=== PATIENT | male | born 1940 | race Caucasian/White ===

== ENCOUNTER → 2017-03-24 14:03 | Outpatient (POV) | payer MEDICARE, SELFPAY ==
[2017-03-24 15:56] LABS: Eosinophils # 0.1 K/mm3 (0.0-0.4); Eosinophils % 0.6 % (0.1-12.0); Hematocrit 49.5 % (42.0-52.0); Hemoglobin 15.5 g/dL (14.1-18.0); Lymphocytes # 1.1 K/mm3 (0.7-4.5); Lymphocytes % 10.5 K/mm3 (10-50); Mean Corpuscular HGB Conc 31.2 g/dL (31.8-35.4); Mean Corpuscular Hemoglobin 28.2 pg (27.0-31.2); Mean Corpuscular Volume 90.2 fl (80-94); Mean Platelet Volume 8.2 fl (7.4-10.4); Monocytes # 0.5 K/mm3 (0.1-1.0); Monocytes % 4.6 % (1.7-9.3); Neutrophils # 8.4 K/mm3 (1.8-7.8); Neutrophils % 84.3 % (37.0-80.0); Platelet Count 206 K/mm3 (142-424); Red Blood Count 5.49 M/mm3 (4.60-6.20); Red Cell Distribution Width 12.5 % (11.5-17.5)
--- NOTE | 2017-03-24 16:00 | XR_ITS ---
XR chest 2V HISTORY: ITS.REASON: ASTHMA ORDERING PHYSICIAN: Robert Alvares MD PATIENT AGE: 76 years COMPARISON: None available FINDINGS: There is been prior median sternotomy. Bipolar pacemaker is present from the left subclavian approach. Minimal fibrotic changes are present in the right upper lung zone with pleural thickening laterally. No lobar consolidation or collapse. There is coronary artery stent on the left. There is slight loss of height anteriorly of T12 age indeterminate. IMPRESSION: 1. No definite acute finding. 2. Prior median sternotomy with fibrotic change and pleural thickening right midlung laterally
[2017-04-01 06:32] LABS: Immunoglobulin E, Total 23 IU/mL (0-100)
== END ==
PROVIDERS: Nurse Practitioner Family; PCP Family Medicine; Visit Provider Internal Medicine
DX: J45.909 Unspecified asthma, uncomplicated (principal)
CPT/HCPCS: 36415; 71046; 82785; 85025

== ENCOUNTER → 2017-04-27 14:26 | Outpatient (CLI) | payer MEDICARE, SELFPAY ==
--- NOTE | 2017-04-27 14:29 | CT_ITS ---
CT sinus wo con Ordering Physician: Tobi Carlson MD Patient Age: 76 years: Male HISTORY: ITS.REASON: CHRONIC MAXILLARY SINUSITIS chronic maxillary sinusitis. TECHNIQUE: Helical CT scanning performed through the facial bones and paranasal sinuses. Sagittal coronal reconstructions on CT workstation. COMPARISON :Previous CT sinuses October 2016. And CT head August 2016 FINDINGS Maxillary sinuses are well-developed. Ostiomeatal unit and pathway clear and patent bilaterally Right maxillary sinus. Minor Scant mucosal thickening along floor of maxillary sinus.. Unchanged as prior studies. Left maxillary sinus clear unremarkable Ethmoid air cells: Stable mild inflammatory changes. Opacification of the mid left ethmoid air cells again noted with mild diffuse thickening otherwise.. Frontal sinuses. Very Small underdeveloped but clear frontal sinuses.. Sphenoid sinus. Additional moderate mucosal thickening at left frontal sinus.. Slightly bubbly character. Moderate size sella turcica with a relatively small flat pituitary which may reflect partial empty sella pattern. Stable as well Nasal septum with only scant rightward deviation. Inferior septum.. Slightly less mild engorgement nasal turbinates bilaterally -most notable at at theinferior left turbinate.. Orbits included unremarkable. Mild diffuse cerebral atrophy age-appropriate noted. The soft tissues the nasopharynx appears satisfactory. Low resolution images the brain suggest Cerebral atrophy, which most likely accounts for stable generous lateral and third ventricle. . IMPRESSION: .. Left sphenoid sinus-. Slight progressive mucosal thickening w/ additional modest bubbly material. Suggest minor progression of sinusitis here since October 2016. Ethmoid sinuses. Opacification mid left ethmoid air cells again noted with mild inflammatory changes are otherwise ethmoids Stable Scant mucosal thickening inferior right maxillary sinus. Unimpressive with no air-fluid level. . Ostiomeatal unit patent bilateral Moderate engorgement nasal turbinates. Minor deviation nasal septum. Noted above
== END ==
PROVIDERS: PCP Family Medicine; Visit Provider Otolaryngology
DX: J32.9 Chronic sinusitis, unspecified (principal); J32.2 Chronic ethmoidal sinusitis
CPT/HCPCS: 70486

== ENCOUNTER → 2018-11-29 08:44 | Outpatient (CLI) | payer MEDICARE, SELFPAY ==
--- NOTE | 2018-11-29 08:46 | CA_ITS ---
APPROVED REPORT Hospitalist Nocturnist Physician: CT Laterality: Bilateral Study Quality: Fair Indications: ELIZABETH Risk Factors Hypertension: Hyperlipidemia Doppler Spectral Velocity Analysis ECA (R) 91.00/ cm/s ECA (L) 68.60/ cm/s dICA (R) 40.60/18.40 cm/s dICA (L) 57.30/21.20 cm/s Herminio (R) 41.30/17.10 cm/s Herminio (L) 74.80/23.50 cm/s pICA (R) 68.40/28.70 cm/s pICA (L) 104.00/40.90 cm/s dCCA (R) 54.10/16.70 cm/s dCCA (L) 53.30/15.70 cm/s pCCA (R) 59.70/16.50 cm/s pCCA (L) 67.20/13.40 cm/s Vert (R) 25.50/ cm/s Vert (L) 19.00/ cm/s ICA/CCA 1.26 ICA/CCA 1.95 Findings Duplex evaluation demonstrates stenosis of the right proximal internal carotid artery in the range of 20-49% with PSV <140 cm/sec, EDV <100 cm/sec, and IC/CC Ratio <4.0. Duplex evaluation demonstrates stenosis of the left proximal internal carotid artery in the range of 20-49% with PSV <140 cm/sec, EDV <100 cm/sec, and IC/CC Ratio <4.0. Duplex evaluation demonstrates antegrade flow of the bilateral Vertebral Arteries. Conclusion Duplex evaluation demonstrates stenosis of the right proximal internal carotid artery in the range of 20-49% Duplex evaluation demonstrates stenosis of the left proximal internal carotid artery in the range of 20-49% Duplex evaluation demonstrates antegrade flow of the bilateral Vertebral Arteries. Electronically signed by : Donn Cai MD 12/03/2018 07:43:21
== END ==
PROVIDERS: PCP Family Medicine; Visit Provider Urology
DX: I65.23 Occlusion and stenosis of bilateral carotid arteries (principal)
CPT/HCPCS: 93880

== ENCOUNTER → 2019-12-20 12:31 | Outpatient (CLI) | payer MEDICARE, SELFPAY ==
--- NOTE | 2019-12-20 12:35 | CA_ITS ---
APPROVED REPORT EXAM: Comprehensive 2D, Doppler, and color-flow Echocardiogram [employer] Manager: Jessica Jimenez RT(R) Ht: 5 ft 5 in Wt: 155lbs BSA: 1.77 BP: 154/82 mmHg Indications: HTN, SOA, CP, CAD, AVR porcine, PP, hyperlipidemia M-Mode Dimensions RVDd 2.81 cm (0.9-2.6) LA Diam 3.27 cm (1.9-4.0) LVDd 4.68 cm (3.5-5.7) Ao Diam 3.32 cm (2.0-3.7) LVDs 3.52 cm (3.5-5.7) IVSd 1.56 cm (0.6-1.1) PWd 1.38 cm (0.6-1.1) EF (Teich) 49.10% FS 24.80% EDV (Teich) 101.30 mL ESV (Teich) 51.60 mL Aortic Valve LVOT Max 83.00 (70-110 cm/s) LVOT VTI 18.96 cm AoV Peak Casey. 189.00 (50-130 cm/s) AO Peak GR. 14.40 mmHg AO Mean GR. 8.70 (<5 mmHg) AO VTI 42.64 (18-25 cm) Tricuspid Valve TR P. Velocity 249.00 cm/s RAP Estimate 15.00 mmHg RVSP 39.80 mmHg Left Ventricle Left atrium is mildly enlarged, left ventricle is normal size, mild concentric left ventricular hypertrophy, visually estimated ejection fraction approximately 40%, there is abnormal septal motion, there appears to be mild hypokinesis involving the mid to distal septum and anterior apical wall. Diastolic parameters are inconclusive. Right Ventricle Right atrium and right ventricle are normal size and contractility, there is a pacemaker lead seen right sided chamber. Aortic Valve Historically patient has a bioprosthetic valve in the aortic position, the valve leaflets are not well visualized. There is extensive calcification noted on the valve, however the velocities across the valve is not increased to suggest prosthetic valve stenosis. There is no aortic insufficiency. Mitral Valve Mitral valve has mitral calcification, leaflets are minimally thickened, there is no mitral stenosis, there is mild mitral regurgitation. Tricuspid Valve Tricuspid valve is grossly normal, there is mild tricuspid regurgitation. Tricuspid regurgitation jet velocity is inadequate for calculation of the right ventricular systolic pressure. Pulmonic Valve Pulmonic valve is poorly visualized. Great Vessels Aortic root is normal size. Pericardium No significant pericardial effusion noted. Conclusion 1. Mildly low left atrium, normal left ventricular size, mild concentric left ventricular hypertrophy, visually estimated ejection fraction 40%, there is abnormal septal motion and segmental wall motion abnormality described above, diastolic parameters are inconclusive. 2. Bioprosthetic valve noted in the aortic position, the prosthetic outflow velocities are not suggestive of prosthetic valve stenosis, there is extensive calcification seen on the valve. There is no aortic insufficiency. 3. Mild mitral and tricuspid regurgitation. 4. No significant pericardial effusion noted. Electronically signed by : Basil Connell, 12/21/2019 05:42:45
--- NOTE | 2019-12-20 12:35 | CA_ITS ---
APPROVED REPORT Laborer Tanbark: PAIGE Laterality: Bilateral Study Quality: Adequate Indications: bilateral carotid artery stenosis Risk Factors Hypertension: Hyperlipidemia Doppler Spectral Velocity Analysis ECA (R) 139.90/34.10 cm/s ECA (L) 135.40/39.40 cm/s dICA (R) 37.40/10.20 cm/s dICA (L) 117.90/34.60 cm/s Herminio (R) 44.40/12.80 cm/s Herminio (L) 193.00/44.40 cm/s pICA (R) 59.80/18.80 cm/s pICA (L) 233.10/85.50 cm/s dCCA (R) 79.70/22.30 cm/s dCCA (L) 82.30/21.40 cm/s pCCA (R) 110.10/18.20 cm/s pCCA (L) 80.50/14.60 cm/s Vert (R) 42.80/13.90 cm/s Vert (L) 60.20/12.80 cm/s ICA/CCA 0.75 ICA/CCA 2.83 Findings Duplex evaluation demonstrates stenosis of the right proximal internal carotid artery in the range of 20-49% with PSV <140 cm/sec, EDV <100 cm/sec, and IC/CC Ratio <4.0. Duplex evaluation demonstrates stenosis of the left proximal internal carotid artery in the range of 50-69% with PSV =140 cm/sec, EDV <100 cm/sec, and IC/CC Ratio <4.0. Conclusion Duplex evaluation demonstrates stenosis of the right proximal internal carotid artery in the range of 20-49% with PSV <140 cm/sec, EDV <100 cm/sec, and IC/CC Ratio <4.0. Duplex evaluation demonstrates stenosis of the left proximal internal carotid artery in the range of 50-69% with PSV =140 cm/sec, EDV <100 cm/sec, and IC/CC Ratio <4.0. Electronically signed by : Donn Cai MD 12/20/2019 17:17:27
== END ==
PROVIDERS: PCP Family Medicine; Visit Provider Urology
DX: I65.23 Occlusion and stenosis of bilateral carotid arteries (principal); R42 Dizziness and giddiness; R94.31 Abnormal electrocardiogram [ECG] [EKG]; E78.49 Other hyperlipidemia; I11.0 Hypertensive heart disease with heart failure; I25.10 Atherosclerotic heart disease of native coronary artery without angina pectoris; I35.0 Nonrheumatic aortic (valve) stenosis; I35.9 Nonrheumatic aortic valve disorder, unspecified; I50.32 Chronic diastolic (congestive) heart failure; N18.2 Chronic kidney disease, stage 2 (mild); R53.83 Other fatigue; G47.33 Obstructive sleep apnea (adult) (pediatric); Z95.0 Presence of cardiac pacemaker; Z95.4 Presence of other heart-valve replacement
CPT/HCPCS: 93306; 93880

== ENCOUNTER → 2020-01-03 10:57 | Outpatient (CLI) | payer MEDICARE, SELFPAY ==
--- NOTE | 2020-01-03 11:01 | XR_ITS ---
PROCEDURE: XR CHEST 2V CLINICAL HISTORY: tingling around pacemaker generator COMPARISON: CR CXR2V XR chest 2V from 03/24/2017 FINDINGS: Prior CABG. Bipolar pacemaker is present from left subclavian approach. There is some scarring in the right midlung. Lungs are otherwise clear. There is a small hiatal hernia. No acute bony abnormalities. IMPRESSION: No change with no acute finding Dictated by: Donn Cai MD 01/03/2020 15:12 Donn Cai MD in [place] 01/03/2020 15:12
== END ==
PROVIDERS: PCP Family Medicine; Visit Provider Nurse Practitioner Family
DX: R07.89 Other chest pain; G20 Parkinson's disease; E78.49 Other hyperlipidemia; I06.0 Rheumatic aortic stenosis; I11.0 Hypertensive heart disease with heart failure; I20.8 Other forms of angina pectoris; I65.23 Occlusion and stenosis of bilateral carotid arteries; R93.1 Abnormal findings on diagnostic imaging of heart and coronary circulation; Z95.0 Presence of cardiac pacemaker; Z95.2 Presence of prosthetic heart valve; Z95.4 Presence of other heart-valve replacement
CPT/HCPCS: 71046

== ENCOUNTER 2020-01-09 08:20 | Day surgery (SDC) | payer MEDICARE, SELFPAY ==
[2020-01-09] VITALS (17 sets, daily range): BP systolic 127–155; BP diastolic 73–98; PULSE 60–86; RESP 16–20; TEMP 36.6; O2SAT 97–100; BMI 25.7
--- NOTE | 2020-01-09 | IR_ITS ---
APPROVED REPORT Patient Location: Outpatient PROCEDURES Selective coronary angiogram Left internal carotid artery selective angiogram INDICATION Known coronary artery disease, Left internal carotid artery stenosis accompanied by TIA Informed consent was obtained prior to the procedure. COMPLICATIONS none Estimated Blood Loss: less than 10 mls TECHNIQUE One percent lidocaine was used to anesthetize the right groin. The right femoral artery was accessed via the Seldinger technique. A 4-Uzbek sheath was placed in the right femoral artery. The JL-4 and JR-4 catheter was also used to perform left heart catheterization left ventriculogram and selective coronary angiogram. The JR4 catheter was used to cannulate the left internal carotid artery and perform selective angiography ANGIOGRAPHIC RESULTS The left main artery Is short and normal The left anterior descending artery Has a proximal 10 to 20% stenosis followed by a proximal to mid vessel stent which has a 20 to 30% concentric stenosis The circumflex artery Is a large dominant vessel with mild luminal irregularities nothing greater than 10% this gives rise to a large ramus intermedius which has mild ostial 10% luminal irregularities The right coronary artery Vestigial normal The SCHREIBER ventriculogram reveals Not performed The left ventricular end-diastolic pressure Not measured The left common carotid artery is widely patent and gives rise to a severely stenosed 80% ostial left internal carotid artery IMPRESSION Widely patent coronary arteries as described above Severe left internal carotid artery stenosis PLAN 1. Patient will be referred to [facility] for consideration of left internal carotid artery stenting. 2. Continue aspirin and Plavix 3. Continue risk factor modification Electronically signed by : Kwaku Alvarado, 01/09/2020 14:03:09
[2020-01-09 09:10] LABS: Basophils # 0.1 K/mm3 (0-0.2); Basophils % 0.6 % (0.1-2.0); Eosinophils # 0.3 K/mm3 (0.0-0.4); Eosinophils % 3.6 % (0.1-12.0); Hematocrit 43.3 % (42.0-52.0); Hemoglobin 13.5 g/dL (14.1-18.0); Lymphocytes % 23.6 % (10-50); Mean Corpuscular HGB Conc 31.2 g/dL (31.8-35.4); Mean Corpuscular Hemoglobin 28.3 pg (27.0-31.2); Mean Corpuscular Volume 90.8 fl (80-94); Monocytes # 0.6 K/mm3 (0.1-1.0); Neutrophils # 5.5 K/mm3 (1.8-7.8); Neutrophils % 65.2 % (37.0-80.0); Platelet Count 178 K/mm3 (142-424); Red Blood Count 4.77 M/mm3 (4.60-6.20); Red Cell Distribution Width 13.6 % (11.5-17.5); White Blood Count 8.5 K/mm3 (4.8-10.8)
[2020-01-09 09:20] LABS: Chloride 109 mmol/L (98-107)
[2020-01-09 09:21] LABS: Potassium 4.9 mmoL/L (3.5-5.1); Sodium 140 mmol/L (136-145)
[2020-01-09 09:23] LABS: Blood Urea Nitrogen 29 mg/dl (9-20); Creatinine Clearance Estimated 34 mL/min (50-200); Estimated Glomerular Filt Rate 37 ml/min (>60); GFR (African American) 44 ML/MIN (>60)
[2020-01-09 09:24] LABS: Anion Gap 10.9 mEq/L (5-15); Carbon Dioxide 25 mmol/L (22.0-30.0); Glucose 90 mg/dl (74-100)
[2020-01-09 09:46] LABS: Coronavirus 19 IgG Antibody Negative (Negative); Coronavirus 19 IgM Antibody Negative (Negative)
== END 2020-01-09 15:45 | disposition home or self-care (01) ==
LOC: CATHLAB 08:22
PROVIDERS: PCP Family Medicine; Visit Provider Internal Medicine
DX: I25.118 Atherosclerotic heart disease of native coronary artery with other forms of angina pectoris; I65.22 Occlusion and stenosis of left carotid artery; G20 Parkinson's disease; I11.0 Hypertensive heart disease with heart failure; I35.9 Nonrheumatic aortic valve disorder, unspecified; R93.1 Abnormal findings on diagnostic imaging of heart and coronary circulation; R93.89 Abnormal findings on diagnostic imaging of other specified body structures; Z95.0 Presence of cardiac pacemaker; Z95.2 Presence of prosthetic heart valve; Z79.01 Long term (current) use of anticoagulants; Z79.82 Long term (current) use of aspirin; I50.32 Chronic diastolic (congestive) heart failure; Z79.899 Other long term (current) drug therapy; Z88.8 Allergy status to other drugs, medicaments and biological substances
CPT/HCPCS: 36224; 80048; 85025; 86328; 93458; 99152; C1725; C1769; C1894; J1644; Q9967

== ENCOUNTER 2020-12-06 09:48 | Day surgery (SDC) | payer MEDICARE, SELFPAY ==
[2020-12-06] VITALS (7 sets, daily range): BP systolic 85–168; BP diastolic 48–99; PULSE 74–97; RESP 19–20; O2SAT 93–97; BMI 25.7
--- NOTE | 2020-12-06 | IR_ITS ---
APPROVED REPORT Patient Location: Outpatient Director Of Content And Programming: ZAC Phelan RT (R) PROCEDURES 1. Pocket Revision 2. Removal of old Pacemaker 3. Implant of Permanent Pacemaker INDICATION Recall of Foy Generator Informed consent was obtained prior to the procedure. COMPLICATIONS None Estimated Blood Loss: Less than 10 ML TECHNIQUE 1% lidocaine with epinephrine used to anesthetize the left anterior aspect of the chest. Scalpel was used to make the initial cutaneous incision and then used to dissect down to the existing pacemaker generator. The generator was removed from the existing pocket. Digital manipulation was required along with intermittent usage of scalpel in order to revise the pocket. The leads were removed from the old generator. The new generator was screwed to the existing leads and secured into place. Electronic interrogation proved acceptable thresholds and voltage within the lead. Antibiotics were used to flush the pocket and the pacemaker was secured using 3-0 silk into the newly revised pocket. Monocryl was used to close the subcutaneous tissue and then elia were placed on the cutaneous area in order to approximate the incision. Patient was transferred to the postop holding area in stable condition. INTERROGATION Generator Model number: Accolade MRI DR IS-1 L311 Generator Serial number: [id number] Atrial lead model number: Tendril STS Optim IS-1 Bi Positive Fix Steroid RA/RV Atrial lead serial number: [id number] P-wave: 2.0 mV Impedence: 450 Ohms Threshold: 2.0V@1.0ms Current: 4.5 Right Ventricular lead model number: Tendril STS Optim IS-1 Bi Positive Fix Steroid RA/RV [id number] Right Ventricular lead serial number: [id number] R-wave: 12.0 mV Impedence: 650 Ohms Threshold: 1.0V@0.4ms Current: 1.6 mA Pacing Parameters: Mode: DDDR Base/Max Track: 60ppm/130ppm No diaphragmatic stimulation at 10 volts. IMPRESSION Successful Pocket Revision Successful Removal of old Pacemaker Successful Implant of Permanent Pacemaker PLAN 1. Post Op Wound Care Electronically signed by : Kwaku Alvarado MD 12/17/2020 13:12:11
[2020-12-06 10:27] LABS: Coronavirus 19, PCR Not Detected (NotDetected); Influenza A, PCR Not Detected (NotDetected); Influenza B, PCR Not Detected (NotDetected)
[2020-12-06 10:35] LABS: Basophils # 0.1 K/mm3 (0-0.2); Basophils % 0.6 % (0.1-2.0); Eosinophils # 0.3 K/mm3 (0.0-0.4); Eosinophils % 2.9 % (0.1-12.0); Hematocrit 43.5 % (42.0-52.0); Hemoglobin 13.3 g/dL (14.1-18.0); Lymphocytes # 2.4 K/mm3 (0.7-4.5); Lymphocytes % 27.4 % (10-50); Mean Corpuscular HGB Conc 30.7 g/dL (31.8-35.4); Mean Corpuscular Hemoglobin 28.4 pg (27.0-31.2); Mean Corpuscular Volume 92.6 fl (80-94); Mean Platelet Volume 8.9 fl (7.4-10.4); Monocytes # 0.5 K/mm3 (0.1-1.0); Monocytes % 6.2 % (1.7-9.3); Neutrophils # 5.4 K/mm3 (1.8-7.8); Neutrophils % 62.8 % (37.0-80.0); Platelet Count 169 K/mm3 (142-424); Red Cell Distribution Width 13.2 % (11.5-17.5); White Blood Count 8.6 K/mm3 (4.8-10.8)
[2020-12-06 10:42] LABS: Chloride 125 mmol/L (98-107); Potassium 3.2 mmoL/L (3.5-5.1); Sodium 144 mmol/L (136-145)
[2020-12-06 10:45] LABS: Anion Gap 7.2 mEq/L (5-15); Blood Urea Nitrogen 19 mg/dl (9-20); Carbon Dioxide 15 mmol/L (22.0-30.0); Creatinine Clearance Estimated 59 mL/min (50-200); Estimated Glomerular Filt Rate 93 ml/min (>60); GFR (African American) 113 ML/MIN (>60)
[2020-12-06 10:48] LABS: Glucose 46 mg/dl (74-100)
[2020-12-06 10:58] LABS: POC Glucose,Bedside 59 (70-110)
[2020-12-06 11:04] LABS: Calcium 4.9 mg/dl (8.4-10.2)
[2020-12-06 11:17] LABS: POC Glucose,Bedside 88 (70-110)
--- NOTE | 2020-12-06 12:08 | HMH.ANESCL ---
[facility] Anesthesia Checklist - Patient Identification Patient Identification: Arm Band - Structural Data Admitted From: Home Planned Operative Procedure/s: Pacemaker Generator Change Consent for Planned Operative Procedure(s) Verified: Yes Verified Documents: Surgical Consent, History and Physical - NPO Status Verified Time NPO: 00:00 - Additional verifications Anesthesia Reactions: No - Airway Assessment C-Spine Mobility Assessed: Yes (mp2) TMJ Mobility Assessed: Yes Dentition: Good Dentition - Neurological Assessment Level of Consciousness: Awake, Alert - Anesthesia Plan Anesthesia Risk discussed: Yes Anesthesia Plan: Verified ASA Class: III Anesthesia Type: MAC [facility] History I have reviewed the patient's past medical history: Yes Medical History: Reports:: Coronary Artery Disease, Cerebrovascular Accident, Depression, Gastroesophageal Reflux Disease(GERD), Hypertension, Internal Pacemaker, Migraine Denies:: Cancer, Diabetes Mellitus Type 1, Diabetes Mellitus Type 2, MRSA, Seizures *Have you ever received a pneumonia vaccine?: Yes *Have you received a flu vaccine this season?: Yes Other Medical History: Reports: Arthritis, Cataracts, Other Anesthesia experience/problems:: nac Other Surgeries: Yes: Angioplasty, Appendectomy, CABG, Cardiac Catheterization, Cardiac Surgery, Cholecystectomy, Colonoscopy, Coronary Stent, Open Heart Surgery, Pacemaker, Other Amputation: No Fractures: No - *Social History Smoking Status: Former smoker Alcohol Intake: never Alcohol Intake Frequency:: other Substance Use Type: denies use *Occupational Status:: retired Housing: house Household Members: spouse *Travel in the last 8 weeks: None - Psychiatric History Pschychiatric History:: Reports:: Depression Family Hx:: Cancer
== END 2020-12-06 13:58 | disposition home or self-care (01) ==
LOC: CATHLAB 09:51
PROVIDERS: PCP Family Medicine; Visit Provider Internal Medicine
DX: T82.111A Breakdown (mechanical) of cardiac pulse generator (battery), initial encounter (principal); I44.0 Atrioventricular block, first degree; Y83.1 Surgical operation with implant of artificial internal device as the cause of abnormal reaction of the patient, or of later complication, without mention of misadventure at the time of the procedure; I35.0 Nonrheumatic aortic (valve) stenosis; I11.0 Hypertensive heart disease with heart failure; I50.32 Chronic diastolic (congestive) heart failure; I25.118 Atherosclerotic heart disease of native coronary artery with other forms of angina pectoris; Z79.899 Other long term (current) drug therapy; Z79.01 Long term (current) use of anticoagulants; Z20.822 Contact with and (suspected) exposure to COVID-19
CPT/HCPCS: 33228; 80048; 82962; 85025; 99152; C1785; C9803; U0003; U0005

== ENCOUNTER → 2021-04-01 08:20 | Outpatient (CLI) | payer MEDICARE, SELFPAY ==
--- NOTE | 2021-04-01 08:21 | CA_ITS ---
APPROVED REPORT EXAM: Comprehensive 2D, Doppler, and color-flow Echocardiogram Supervisor Insulation: Yumiko Kennedy CRT Ht: 5 ft 4 in Wt: 149lbs BSA: 1.73 BP: 126/76 mmHg Indications: Hyperlipidemia, Cardiomyopathy, Hypertension/HDD, AVR Porcine, pacemaker, parkinsons, gerd 2D Dimensions LVOT 2.03 cm (M/F) 1.5-2.5 LA Volume 44.30 mL LA Volume Index 25.60 mL/m2 (M/F) 16-34 M-Mode Dimensions RVDd 3.61 cm (0.9-2.6) LA Diam 3.00 cm (1.9-4.0) LVDd 5.36 cm (3.5-5.7) Ao Diam 4.45 cm (2.0-3.7) IVSd 1.00 cm (0.6-1.1) PWd 0.68 cm (0.6-1.1) EDV (Teich) 138.90 mL LV Diastology E Decel Time 150.00 (160-240 msec) E/A Ratio 0.46 Aortic Valve LVOT Max 163.00 (70-110 cm/s) LVOT VTI 31.00 cm AoV Peak Casey. 194.00 (50-130 cm/s) AO Peak GR. 15.10 mmHg AO Mean GR. 8.40 (<5 mmHg) AO VTI 38.40 (18-25 cm) SHERRIE (VTI) 2.61 (2.5-4.5 cm2) Mitral Valve MV E Max Casey. 79.00 (40-130 cm/s) MV A Velocity 173.00 (40-130 cm/s) E/A Ratio 0.46 MV Decel. Time 150.00 (160-240 ms) MV PHT 44.00 ms Pulmonary Valve PV Peak Velocity 146.00 (50-150 cm/s) Tricuspid Valve TR P. Velocity 245.00 cm/s RAP Estimate 10.00 mmHg RVSP 34.10 mmHg Left Ventricle Left atrium is mildly enlarged, left ventricle is normal size, mild concentric left ventricular hypertrophy, visually estimated ejection fraction 50% with no obvious regional wall motion abnormality, there is abnormal septal motion. Grade 1 diastolic dysfunction seen without tissue Doppler evidence of raise left atrial pressure. Right Ventricle Right atrium and right ventricle are normal size and contractility, there is pacemaker leads in right ventricle. Aortic Valve There is bioprosthetic valve noted in the aortic position, valve leaflets are not well visualized, the aortic outflow velocity is within normal range, there is no aortic outflow obstruction or aortic insufficiency. Mitral Valve Mitral valve has mitral annular calcification, there is no mitral stenosis, there is mild mitral regurgitation. Tricuspid Valve Tricuspid grossly normal, there is trace tricuspid regurgitation, tricuspid regurgitation jet velocity is inadequate for calculation of the right ventricular systolic pressure. Pulmonic Valve Pulmonic valve is poorly visualized. Great Vessels Aortic root is normal size. Inferior vena cava is poorly visualized. Pericardium No significant pericardial effusion noted. Conclusion 1. Mildly enlarged left atrium, normal left ventricular size, mild concentric left ventricular hypertrophy, visually estimated ejection fraction 50%, there is abnormal septal motion, grade 1 diastolic dysfunction seen without tissue Doppler evidence of raise left atrial pressure. 2. Bioprosthetic valve in the aortic position, valve leaflets are not well visualized, there is no significant aortic outflow obstruction or aortic insufficiency. 3. Mild mitral and trace tricuspid regurgitation. 4. No significant pericardial effusion noted. 5. Inferior vena cava is poorly visualized. Electronically signed by : Basil Connell MD 04/01/2021 20:44:49
== END ==
PROVIDERS: PCP Family Medicine; Visit Provider Urology
DX: E78.2 Mixed hyperlipidemia (principal); G47.33 Obstructive sleep apnea (adult) (pediatric); I11.0 Hypertensive heart disease with heart failure; I25.118 Atherosclerotic heart disease of native coronary artery with other forms of angina pectoris; I35.0 Nonrheumatic aortic (valve) stenosis; I65.23 Occlusion and stenosis of bilateral carotid arteries; N18.2 Chronic kidney disease, stage 2 (mild); R06.00 Dyspnea, unspecified
CPT/HCPCS: 93306

== ENCOUNTER → 2021-04-22 12:16 | Outpatient (CLI) | payer MEDICARE, SELFPAY ==
--- NOTE | 2021-04-22 12:17 | CA_ITS ---
FINAL REPORT TECHNIQUE: Color Doppler, duplex Doppler and michaels scale sonography of the bilateral neck arterial vasculature was performed. Velocities were measured in the carotid arteries. Stenosis evaluation based on the validated velocity criteria. CLINICAL HISTORY: ELIZABETH,HTN,HLD FINDINGS: The peak systolic velocity of the right common carotid artery is 78 cm/s. The peak systolic velocity of the right internal carotid artery is 75 cm/s and end diastolic velocity 18 cm/s. The ICA/CCA ratio is 1.1. A mild amount of plaque is present. The right external carotid artery is patent. The right vertebral artery is patent with antegrade flow. The peak systolic velocity of the left common carotid artery is 62 cm/s. The peak systolic velocity of the left internal carotid artery is 164 cm/s and end diastolic velocity 35 cm/s. The ICA/CCA ratio is 2.7. A moderate amount of plaque is present. The left external carotid artery is patent.The left vertebral artery is patent with antegrade flow. IMPRESSION: Less than 50% bilateral carotid stenosis. Bilateral patent vertebral arteries with antegrade flow. Reviewed, Interpreted and Dictated by Travis Guardado III, MD Transcribed by Pastora Lewis Authenticated by Travis Guardado III, MD on 04/22/2021 03:45:47 [facility]
== END ==
PROVIDERS: PCP Family Medicine; Visit Provider Nurse Practitioner Family
DX: E78.5 Hyperlipidemia, unspecified (principal); G47.33 Obstructive sleep apnea (adult) (pediatric); I11.9 Hypertensive heart disease without heart failure; I25.10 Atherosclerotic heart disease of native coronary artery without angina pectoris; I35.0 Nonrheumatic aortic (valve) stenosis; I35.9 Nonrheumatic aortic valve disorder, unspecified; N18.2 Chronic kidney disease, stage 2 (mild); R06.00 Dyspnea, unspecified; Z95.0 Presence of cardiac pacemaker; I65.23 Occlusion and stenosis of bilateral carotid arteries
CPT/HCPCS: 93880

== ENCOUNTER → 2021-12-23 14:03 | Outpatient (CLI) | payer MEDICARE, SELFPAY ==
[2021-12-23 16:34] LABS: Vitamin B12 680 pg/mL (239-931)
== END ==
PROVIDERS: PCP Family Medicine; Visit Provider Nurse Practitioner Family
DX: M54.2 Cervicalgia (principal); M54.50 Low back pain, unspecified; R25.8 Other abnormal involuntary movements; R29.2 Abnormal reflex; R29.6 Repeated falls
CPT/HCPCS: 36415; 82607

== ENCOUNTER → 2022-04-07 14:37 | Outpatient (CLI) | payer MEDICARE, SELFPAY ==
--- NOTE | 2022-04-07 14:38 | CA_ITS ---
APPROVED REPORT EXAM: Comprehensive 2D, Doppler, and color-flow Echocardiogram Housekeeping Associate: ALEXIS Cameron, RVS Ht: 5 ft 4 in Wt: 148lbs BSA: 1.72 BP: 126/66 mmHg Indications: AVR-porcine, CAD, LUBA, QUEEN, Parkinson's 2D Dimensions IVSd 0.94 cm LVEF (Visual) 90.40 % PWd 0.91 cm LA Volume 41.70 mL LVDd 5.49 cm LA Volume Index 24.20 mL/m2 (M/F) 16-34 LVDs 2.08 cm Aortic Root 2.60 cm Left Atrium 3.97 cm LVOT 2.08 cm (M/F) 1.5-2.5 M-Mode Dimensions LA Diam 2.85 cm (1.9-4.0) Ao Diam 4.15 cm (2.0-3.7) TAPSE 1.61 (<1.7) LV Diastology E Decel Time 337.00 (160-240 msec) E/A Ratio 0.67 MED E' 4.10 (< 7 cm/sec) MED A' 9.50 cm/s E'/MED E' Ratio 30.44 (>14) LAT E' 7.20 (<10 cm/sec) LAT A' 9.30 cm/s E/LAT E' Ratio 17.33 (>14) Aortic Valve LVOT Max 67.00 (70-110 cm/s) LVOT VTI 13.35 cm AoV Peak Casey. 205.00 (50-130 cm/s) AO Peak GR. 16.90 mmHg AO Mean GR. 8.40 (<5 mmHg) AO VTI 43.55 (18-25 cm) SHERRIE (VTI) 1.04 (2.5-4.5 cm2) Mitral Valve MV A Velocity 187.00 (40-130 cm/s) E/A Ratio 0.67 MV Decel. Time 337.00 (160-240 ms) MV Mean Gr. 6.60 (<2mmHg) MV PHT 80.00 ms Pulmonary Valve PV Peak Velocity 65.00 (50-150 cm/s) IA End VMAX 197.00 cm/s Tricuspid Valve TR P. Velocity 257.00 cm/s RAP Estimate 10.00 mmHg RVSP 36.50 mmHg Left Ventricle Left atrium is mildly enlarged, left ventricle is normal size mild concentric left ventricular hypertrophy, estimated ejection fraction 55% with no regional wall motion abnormality, grade 1 diastolic dysfunction seen with tissue Doppler evidence of raised left atrial pressure. Right Ventricle Right atrium and right ventricle are mildly enlarged with normal contractility. Aortic Valve There is bioprosthetic valve noted in the aortic position, the leaflets are not well visualized, the mean gradient across bioprosthetic valve is 8 mmHg, there is no significant aortic insufficiency. Mitral Valve Mitral valve has mitral annular calcification which extends to both anterior posterior mitral leaflet, there is no significant mitral stenosis, there is mild mitral regurgitation. Tricuspid Valve Tricuspid valve grossly normal, there is mild tricuspid regurgitation, tricuspid regurgitation jet velocity is inadequate for calculation of the right ventricular systolic pressure. Pulmonic Valve Pulmonic valve is poorly visualized. Great Vessels Aortic root is normal size. Inferior vena cava is poorly visualized. Pericardium No significant pericardial effusion noted. Conclusion 1. Biatrial enlargement, normal left ventricular size, mild concentric left ventricular hypertrophy, estimated ejection fraction 55% with no regional wall motion abnormality, grade 1 diastolic dysfunction seen with tissue Doppler evidence of raised left atrial pressure. 2. Normal functioning bioprosthetic valve in aortic position. 3. Mitral annular calcification and calcified mitral valve leaflets without significant mitral stenosis, there is mild mitral regurgitation. 4. Mild tricuspid regurgitation. 5. No significant pericardial effusion noted. 6. Inferior vena cava is poorly visualized. Electronically signed by : Basil Connell MD 04/08/2022 06:29:31
--- NOTE | 2022-04-07 16:01 | XR_ITS ---
FINAL REPORT CLINICAL HISTORY: dypsnea. patient had a pacemaker placed 1 year ago, he is supposed to be getting a new 3 lead pacemaker soon. FINDINGS: PA and lateral views of the chest are obtained. There is no prior exam for comparison. There are postoperative changes from median sternotomy. A left-sided pacemaker is present. The heart size is normal. There is a retrocardiac opacity containing air which is consistent with a hiatal hernia. There is linear opacity in the right mid lung which is consistent with scar. The lungs are otherwise clear. There is no pleural effusion, pneumothorax, or acute osseous abnormality. IMPRESSION: Linear opacity in the right mid lung consistent with scar, lungs are otherwise clear. Reviewed, Interpreted and Dictated by Karyna Delgado MD Transcribed by Pastora Lewis Authenticated and [facility]
[2022-04-07 18:23] LABS: Basophils # 0.1 K/mm3 (0-0.2); Basophils % 1.1 % (0.1-2.0); Eosinophils # 0.2 K/mm3 (0.0-0.4); Eosinophils % 3.3 % (0.1-12.0); Hematocrit 36.8 % (42.0-52.0); Hemoglobin 11.4 g/dL (14.1-18.0); Lymphocytes # 1.8 K/mm3 (0.7-4.5); Lymphocytes % 24.3 % (10-50); Mean Corpuscular HGB Conc 30.9 g/dL (31.8-35.4); Mean Corpuscular Hemoglobin 26.4 pg (27.0-31.2); Mean Corpuscular Volume 85.4 fl (80-94); Mean Platelet Volume 9.2 fl (7.4-10.4); Monocytes # 0.6 K/mm3 (0.1-1.0); Monocytes % 7.7 % (1.7-9.3); Neutrophils # 4.7 K/mm3 (1.8-7.8); Neutrophils % 63.7 % (37.0-80.0); Platelet Count 174 K/mm3 (142-424); Red Blood Count 4.31 M/mm3 (4.60-6.20); Red Cell Distribution Width 14.4 % (11.5-17.5); White Blood Count 7.4 K/mm3 (4.8-10.8)
[2022-04-07 18:35] LABS: Alanine Aminotransferase 9 U/L (12-78); Alkaline Phosphatase 87 U/L (38-126); Anion Gap 7.6 mEq/L (5-15); Aspartate Amino Transferase 31 U/L (17-59); Bilirubin,Direct 0.4 mg/dl (0.0-0.4); Bilirubin,Indirect 0.3 mg/dL (0.0-0.9); Bilirubin,Total 0.7 mg/dl (0.2-1.3); Bilirubin,Unconjugated 0.3 mg/dL (0.0-1.1); Blood Urea Nitrogen 18 mg/dl (9-20); Calcium 9.1 mg/dl (8.4-10.2); Carbon Dioxide 26 mmol/L (22.0-30.0); Chloride 110 mmol/L (98-107); Chol/HDL Ratio 1.8 (1-3.5); Cholesterol 91 mg/dl (140-200); Estimated Glomerular Filt Rate 45 ml/min (>60); GFR (African American) 55 ML/MIN (>60); Glucose 77 mg/dl (74-100); HDL Cholesterol 52 mg/dl (40-60); Potassium 5.6 mmoL/L (3.5-5.1); Sodium 138 mmol/L (136-145); Triglycerides 91 mg/dl (30-150); VLDL Cholesterol 18 mg/dL (0-40)
[2022-04-07 18:49] LABS: Direct LDL Cholesterol < 30.00 mg/dL (100-129)
[2022-04-07 18:52] LABS: Free T4 (Free Thyroxine) 0.91 ng/dl (0.78-2.19)
== END ==
PROVIDERS: PCP Family Medicine; Visit Provider Internal Medicine
DX: E78.2 Mixed hyperlipidemia (principal); I25.10 Atherosclerotic heart disease of native coronary artery without angina pectoris; I35.0 Nonrheumatic aortic (valve) stenosis; I65.23 Occlusion and stenosis of bilateral carotid arteries; R06.00 Dyspnea, unspecified; Z95.0 Presence of cardiac pacemaker
CPT/HCPCS: 36415; 71046; 80048; 80061; 80076; 83735; 84439; 84443; 85025; 93306